=== PATIENT | female | born 1955 | race Caucasian/White ===

== ENCOUNTER 2017-09-15 17:51 | Emergency (ER) | payer OTHER, BC ==
[~2017-09-15] VITALS: Ht 177.8 cm; Wt 131.5 kg
[~2017-09-15 17:51] MED LIST: Diflucan100 MG PO; LEVSOD50; Norco 5-325 Ta1 EACH PO; PROM25 PO; Toprol Xl50 MG PO; Zovirax800 MG PO
[2017-09-15] MEDS ORDERED: XARELTO10 MG (18:00)
[2017-09-15] MEDS ORDERED: Percocet 5-3251 EACH PO (18:47)
== END 2017-09-15 19:40 | disposition home or self-care (01) ==
LOC: ER 17:51
DX: S39.012A Strain of muscle, fascia and tendon of lower back, initial encounter (principal); I48.91 Unspecified atrial fibrillation; E03.9 Hypothyroidism, unspecified; Z79.899 Other long term (current) drug therapy; V49.40XA Driver injured in collision with unspecified motor vehicles in traffic accident, initial encounter
CPT/HCPCS: 72100; 99283; J3010

== ENCOUNTER → 2018-11-02 | Outpatient (CLI) | payer MEDICARE, BC ==
[~2018-11-02] MED LIST changes: +Percocet 5-3251 EACH PO; +XARELTO10 MG
== END | disposition home or self-care (01) ==
LOC: LAB SHORT 12:36 → PLD 12:36
DX: R87.619 Unspecified abnormal cytological findings in specimens from cervix uteri (principal)
CPT/HCPCS: 88305

== ENCOUNTER 2019-04-13 06:50 | Day surgery (SDC) | payer MEDICARE, BC ==
[~2019-04-13] VITALS: Ht 177.8 cm; Wt 123.4 kg
--- NOTE | 2019-04-13 08:36 | NUR ---
04/13/19 0836 Cinthia Arauz PT AND FAMILY UPDATED TO DELAY IN PROCEDURE START TIME DUE TO THE ANESTHESIOLOGIST BEING CALLED TO THE MAIN OR FOR AN EMERGENT PROCEDURE. BED IN LOW, LOCKED POSITION, CALL LIGHT IN REACH.
== END 2019-04-13 10:35 | disposition home or self-care (01) ==
LOC: ORSCSDS 06:50
PROVIDERS: Student in an Organized Health Care Education/Training Program
PROC: 0DBH8ZX Excision of Cecum, Via Natural or Artificial Opening Endoscopic, Diagnostic (ICD-10-PCS; principal; 2019-04-13 08:00)
PROC: 0DBK8ZX Excision of Ascending Colon, Via Natural or Artificial Opening Endoscopic, Diagnostic (ICD-10-PCS; principal; 2019-04-13 08:00)
DX: Z12.11 Encounter for screening for malignant neoplasm of colon (principal); Z86.010 Personal history of colon polyps; Z80.0 Family history of malignant neoplasm of digestive organs; D12.0 Benign neoplasm of cecum; D12.2 Benign neoplasm of ascending colon; D12.3 Benign neoplasm of transverse colon; K64.8 Other hemorrhoids; I48.91 Unspecified atrial fibrillation; Z79.01 Long term (current) use of anticoagulants; E03.9 Hypothyroidism, unspecified; E66.01 Morbid (severe) obesity due to excess calories; Z68.41 Body mass index [BMI] 40.0-44.9, adult; Z79.899 Other long term (current) drug therapy
CPT/HCPCS: 88305; J0330; J0461; J2250; J2405; J2704; J7120